=== PATIENT | female | born 1980 | race Caucasian/White ===

== ENCOUNTER → 2020-09-25 12:21 | Outpatient (CLI) | payer OTHER, SELFPAY | PROVIDERS: PCP Family Medicine; Referring Provider Family Medicine; Visit Provider Family Medicine | DX: G47.10 Hypersomnia, unspecified (principal); R53.83 Other fatigue; R06.83 Snoring | CPT/HCPCS: 95806 ==

== ENCOUNTER → 2020-10-13 06:30 | Outpatient (CLI) | payer OTHER, SELFPAY | PROVIDERS: PCP Family Medicine; Visit Provider Family Medicine | DX: Z46.89 Encounter for fitting and adjustment of other specified devices (principal) ==

== ENCOUNTER → 2024-06-11 | Outpatient (CLI) | payer OTHER, SELFPAY ==
--- NOTE | 2024-06-11 15:33 | BI_ITS ---
MAMMOGRAPHY - BILATERAL SCREENING REASON FOR EXAM: Female, 43 years old. Routine annual screening examination. PERTINENT HISTORY: Non-contributory. TECHNIQUE: Digital bilateral breast jessica (3D mammographic acquisition) in the CC and MLO projections. 2-D mediolateral oblique (MLO) and craniocaudad (CC) views of both breasts were obtained. CAD: Full Field Digital Mammography with Computer Added Detection was performed. COMPARISON: None. Baseline examination. FINDINGS: Breast Composition: There are scattered areas of fibroglandular density. There are no dominant masses or suspicious calcifications. No other significant abnormalities are identified. There has been no significant change since the prior study. BI/SCRN MAMM (CAD)W/JESSICA BILAT IMPRESSION: Stable bilateral screening mammogram. Yearly follow-up mammogram recommended. (A) ASSESSMENT CATEGORY: BIRADS Category 1: Negative. A letter regarding these results will be sent to the patient by the facility within 30 days. Approximately 10% of breast cancers are not detected by mammography. A normal mammogram should not delay biopsy of a clinically suspicious abnormality. [id number] Electronically Signed: Thomas Melo MD at 8:24 EST ,
== END | disposition home or self-care (01) ==
PROVIDERS: PCP Family Medicine; Referring Provider Family Medicine; Visit Provider Family Medicine
DX: Z12.31 Encounter for screening mammogram for malignant neoplasm of breast (principal)
CPT/HCPCS: 77063; 77067

== ENCOUNTER → 2024-06-12 | Outpatient (CLI) | payer OTHER, SELFPAY ==
[2024-06-12 07:42] LABS: Absolute Lymphocyte Count 2.26 X10^3/uL (0.83-4.51); Absolute Neutrophil Count 3.3 X10^3/uL (2.0-7.7); Basophil# 0.06 X10^3/uL; Eosinophil# 0.12 X10^3/uL; Hematocrit 42.8 % (37-47); Hemoglobin 14.2 g/dL (12.0-15.0); Lymphocyte # 2.26 X10^3/ul (0.83-4.51); Lymphocyte % 37.4 % (19-41); Mean Corp Hgb Conc 33.2 g/dL (32-36); Mean Corpuscular Hgb 30.6 pg (27.0-32.0); Mean Corpuscular Volume 92.2 fL (81-99); Mean Platelet Vol. 9.4 fl (6.2-12.0); Monocyte# 0.33 X10^3/uL; Monocyte% 5.5 % (0-10); NRBC Flagged by Analyzer 0 % (0-5); Neutrophil # 3.27 X10^3/uL (2.7-7.7); Neutrophil % 53.9 % (47-70); Platelet Count 344 K/mm3 (150-450); RBC Distribution Width CV 12.8 % (11.6-14.6); RBC Distribution Width SD 43.8 fl (35.1-43.9); Red Blood Count 4.64 M/mm3 (4.2-5.4); White Blood Count 6.1 K/mm3 (4.4-11.0)
[2024-06-12 08:00] LABS: ALB/GLOB Ratio 1.2 RATIO (0.9-2.4); AST(SGOT) 20 U/L (15-37); Alanine Aminotransfer ALT/SGPT 31 U/L (13-56); Albumin, Serum 3.8 g/dL (3.2-5.0); Alkaline Phosphatase 49 U/L (45-117); Anion Gap 5 (5-15); BUN 14 mg/dL (7-18); BUN/Creat Ratio 20.2 RATIO (10-20); Chloride 106 mmol/L (98-107); Cholesterol 253 mg/dL (200); Creatinine, Serum 0.69 mg/dL (0.55-1.02); EST Glomerular Filtration Rate 98 mL/min (>60); Est Glom Filt Rate - Afr Amer 118 mL/min (>60); Globulin 3.3 g/dL (2.2-4.2); Glucose 109 mg/dL (74-106); High Density Lipoprotein 64 mg/dL; Potassium 4.2 mmol/L (3.5-5.1); Protein, Total 7.1 g/dL (6.4-8.2); Sodium Level 138 mmol/L (136-145); Triglycerides 70 mg/dL; Very Low Density Lipoprotein 14 mg/dL (5-40)
== END | disposition home or self-care (01) ==
LOC: LAB 06:05
PROVIDERS: PCP Family Medicine; Referring Provider Family Medicine; Visit Provider Family Medicine
DX: Z00.00 Encounter for general adult medical examination without abnormal findings (principal)
CPT/HCPCS: 36415; 80053; 80061; 84443; 85025

== ENCOUNTER 2024-10-14 06:21 | Day surgery (SDC) | payer OTHER, SELFPAY ==
[2024-10-14] VITALS (8 sets, daily range): BP systolic 104–135; BP diastolic 65–75; PULSE 16–64; RESP 14–16; TEMP 36.1–36.6; O2SAT 95–99; BMI 39.9
[2024-10-14 07:06] LABS: Internal QC Validated? YES +Cl - CLEAR BKGD; Pregnancy, Urine Negative Negative
[2024-10-14] MEDS: Lactated Ringers 1,000 ML 15 ML IV (07:07)
--- NOTE | 2024-10-14 07:34 | PCM.PRE.AN2 ---
ASA Classification* ASA Classification ASA Classification: 2 Assessment & Plan Anesthesia* Anesthesia Assessment Anesthesia Assessment: Discussed sedation and/or anesthesia options, risks, benefits, and alternatives with patient/parents/legal guardian/POA. Questions invited. The patient/parents/legal guardian/POA seems to understand and agrees to proceed with anesthesia plan. Reviewed the physical assessment, medical history, allergy history and patient home medications list prior to surgery/procedure/anesthetic and documented any changes. Performed airway and anesthesia risk assessments. Anesthesia Type Anesthesia Type: MAC History Source History Obtained from:: Patient and Chart Anesthesia Focused Assessment* Temperature: 97.8 F Pulse Rate: 62 Blood Pressure: 135/75 Respiratory Rate: 14 Pulse Ox: 99 Oxygen Delivery Method: Room Air Airway Assessment Mouth opens: >3 cm Mallampati Score: III Teeth Condition: Caps/Crowns (Patient has several crowns. They are all tight.) and Chipped/Broken (Patient has chipped tooth #11.) Neck Range of motion (ROM): Full ROM Focused Labs Anesthesia Preop lab: CBC WBC 6.1 K/mm3 (4.4-11.0) 06/12/24 06:10 06/12/24 RBC 4.64 M/mm3 (4.2-5.4) 06/12/24 06:10 06/12/24 Hgb 14.2 g/dL (12.0-15.0) 06/12/24 06:10 06/12/24 Hct 42.8 % (37-47) 06/12/24 06:10 06/12/24 Plt Count 344 K/mm3 (150-450) 06/12/24 06:10 06/12/24 CHEMISTRY Potassium 4.2 mmol/L (3.5-5.1) 06/12/24 06:10 06/12/24 Sodium 138 mmol/L (136-145) 06/12/24 06:10 06/12/24 BUN 14 mg/dL (7-18) 06/12/24 06:10 06/12/24 Creatinine 0.69 mg/dL (0.55-1.02) 06/12/24 06:10 06/12/24 Glucose 109 mg/dL (74-106) H 06/12/24 06:10 06/12/24 TSH 3.510 uIU/mL (0.358-3.740) 06/12/24 06:10 06/12/24 COAG Urine Test Negative Negative 10/14/24 06:54 10/14/24 Pre-Assessment Diagnosis/Proposed Procedure Planned Operative Procedure(s): EGD, COLONOSCOPY Anesthesia History Anesthesia History - materials recycler: Anesthesia History - materials recycler Hx Hospitalization No 10/10/24 11:00 Any Problems With Anesthesia No 10/10/24 11:00 Cholinesterase deficiency No 10/10/24 11:00 You/Your Family Experience No 10/10/24 11:00 fever (hyperthermia) with Relationship Recent Exposure to Contagious No 10/14/24 06:59 Disease Does patient have nerve No 10/10/24 11:00 stimulator Patient instructed to have device shut off --Does patient have Pacemaker No 10/14/24 06:59 or ICD? When Was Last Pacemaker Check QUESTION #4 FULL TEXT: You/Your Family Experience fever (hyperthermia) with Anesthesia Last Oral Intake Last Oral intake: Last Oral Intake NPO since 02:00 10/14/24 06:59 Meds taken in AM with sips of Yes 10/14/24 06:59 water? Meds patient instructed to take am of surgery Any additional information?: Yes NPO since: 05:30 (Patient had water at 5:30 AM.) Meds taken in AM with sips of water?: Yes PONV PONV - materials recycler: PONV - materials recycler Female Yes 10/10/24 11:00 HX of Motion Sickness No 10/10/24 11:00 HX of N/V After Surgery No 10/10/24 11:00 Non-Smoker Yes 10/10/24 11:00 Duration of Surgery greater No 10/10/24 11:00 than 60 minutes Number of Risk Factors 2 10/10/24 11:00 PONV Score Moderate Risk 10/10/24 11:00 Height & Weight Height & Weight: Anesthesia: Height & Weight Height 5 ft 5 in 10/14/24 06:59 Weight: 109 kg 10/14/24 06:59 Body Mass Index (BMI) 39.9 10/14/24 06:59 Respiratory Assessment Respiratory Assessment - materials recycler: Respiratory Tract Infection Hx - materials recycler Hx Respiratory Tract Infection No 10/10/24 11:00 STOP Sleep Apnea STOP Sleep Apnea - materials recycler: STOP Sleep Apnea - materials recycler Hx Hypertension Yes: BORDERLINE 10/10/24 11:00 Hx Sleep Apnea Yes: COULDNT AFFORD CPAP 10/10/24 11:00 CPAP Yes: DOESNT WEAR 10/10/24 11:00 BIPAP No 10/10/24 11:00 Do you snore loudly (louder than talking or can be heard Do you often feel tired/ fatigued/ sleepy during daytime? Has anyone observed you stop breathing during sleep? STOP Results Positive 10/10/24 11:00 QUESTION #5 FULL TEXT : Do you snore loudly (louder than talking or can be heard through closed doors)? 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 Specify any problems Hx of Preganancy in last 3 No 10/10/24 11:00 Months Nurse Filling Out Transfusion [facility] 10/10/24 11:00 & Questions: Date: 10/10/24 10/10/24 11:00 Time: 11:09 10/10/24 11:00 Patient unable to answer at this time (ie. confused, unrespo /Reproduction History /Reproductive History - materials recycler: /Reproductive Hx- materials recycler Hx Now No 10/10/24 11:00 Gestational Age (in weeks): EDC: Hx Hx Para Hx Section SAB No 10/10/24 11:00 Active Medications Active Medications: Current Medications Generic Name Dose Route Start Last Admin Trade Name Freq PRN Reason Stop Dose Admin Lactated Ringer's 1,000 mls @ 15 mls/hr 10/14/24 06:45 10/14/24 07:07 IV 15 mls/hr .Q48H RUTH Administration PFSH Medical History Wears glasses Depression Anxiety Restless legs Dietary restriction Heartburn Gastric reflux CPAP (continuous positive airway pressure) dependence Sleep apnea Former smoker History of stress test Hypertension Rectal bleeding Rectal pain Kidney stones Back problem Gingival disease Home Medications ?Medication ?Instructions ?Recorded ?Last Taken ?Type fexofenadine 180 mg tablet 180 mg PO QDAY 07/12/24 Unknown History (Tamar Allergy) omeprazole 10 mg capsule,delayed 40 mg PO DAILY 07/24/24 10/14/24 02:00 History release ondansetron HCl 4 mg tablet 8 mg (2 x 4 mg) PO .COMPLEX #5 tabs 07/24/24 Unknown Rx mometasone 50 mcg/actuation nasal 2 spray intranasal DAILY 10/10/24 Unknown History spray Allergy/AdvReac Type Severity Reaction Status Date / Time amoxicillin Allergy Mild Other Verified 10/14/24 06:59 adhesive tape AdvReac Mild Itching Verified 10/14/24 06:59 Family History Father Alcohol abuse Heart disease Myocardial infarction, Onset Age: 20 Sister Alcohol abuse Deep vein thrombosis CVA (cerebral vascular accident) Grandmother Diabetes Surgical History No pertinent past surgical history Social History Smoking Status: Former smoker alcohol intake: never substance use type: does not use what type of physical activity do you participate in: none Review of Systems (Anesthesia) ROS Narrative System reviewed and no additional complaints, except as documented.
--- NOTE | 2024-10-14 07:42 | HP.PCM_ITS ---
HPI - General General Date of Admission: 10/14/24 Date of Service: 10/14/24 Chief Complaint: GERD and rectal bleeding HPI Narrative LISBETH MITCHELL, is a 44 F who presents with a chief Complaints : bleeding and GERD - waking in middle of night with rectal pain - feels like she needs to have a BM - sits on heating pad for relief of pain - rectal bleeding, BRBPR with BM - rectal pain episodes are more frequent than bleeding, 1-3 episodes a month - stools vary in consistency - can strain with BM - reports she has a BM after almost every meal - urgent - denies pain with a BM - with bleeding episodes - her last episode was 4 days ago and states she had 2 episodes this day - on TP and in H20 - most blood she has ever seen ---- CBC was unremarkable 06/12/2024 - reports mild LLQ pain with most recent episode of bleeding, this was self limited - denies any family h/o colon CA - HB - Omeprazole 40mg QD - cannot miss a dose - has been on PPI for a long time - denies any dysphagia [facility] Medical History Wears glasses Depression Anxiety Restless legs Dietary restriction Heartburn Gastric reflux CPAP (continuous positive airway pressure) dependence Sleep apnea Former smoker History of stress test Hypertension Rectal bleeding Rectal pain Kidney stones Back problem Gingival disease Home Medications ?Medication ?Instructions ?Recorded ?Last Taken ?Type fexofenadine 180 mg tablet 180 mg PO QDAY 07/12/24 Unk nown History (Tamar Allergy) omeprazole 10 mg capsule,delayed 40 mg PO DAILY 10/14/24 02:00 History release ondansetron HCl 4 mg tablet 8 mg (2 x 4 mg) PO .COMPLE X #5 tabs 07/24/24 Unknown Rx mometasone 50 mcg/actuation nasal 2 spray intranasal D AILY 10/10/24 Unknown History spray Allergy/AdvReac Type Severity Reaction Status Date / Time amoxicillin Allergy Mild Other Verified 10/14/24 06:59 adhesive tape AdvReac Mild Itching Verified 10/14/24 06:59 Family History Father Alcohol abuse Heart disease Myocardial infarction, Onset Age: 20 Sister Alcohol abuse Deep vein thrombosis CVA (cerebral vascular accident) Grandmother Diabetes Surgical History No pertinent past surgical history Social History Smoking Status: Former smoker alcohol intake: never substance use type: does not use what type of physical activity do you participate in: none ROS Constitutional Constitutional: Denies fatigue, fever(s), poor appetite, weight gain or weight loss Gastrointestinal Gastrointestinal: Denies belching, bloating, change in bowel habits, change in stool character, chewing difficulty, coffee ground emesis, constipation, cr amping, diarrhea, dyspepsia, dysphagia, early satiety, excessive flatus, fecal incontinence, heartburn, hematemesis, hematochezia, hemorrhoids, loose stools, melena, nausea, odynophagia, rectal bleeding, tenesmus, vomiting or weight changes Vital Signs Vital Signs Vital Signs: 10/14/24 06:59 10/14/24 06:59 10/14/24 07:41 Temperature 97.8 F 97.8 F Temperature Source Temporal Pulse Rate 62 62 Respiratory Rate 14 14 Respiratory Pattern Normal Blood Pressure 135/75 H 135/75 H Blood Pressure Mean 95 Blood Pressure Source Monitor Blood Pressure Position Semi-Fowlers Blood Pressure Location Right Arm Pulse Ox 99 99 Oxygen Delivery Method Room Air Room Air Weight Weight: 240 lb 4.862 oz Body Mass Index (BMI) 39.9 Physical Exam Const alert, oriented x3, no apparent distress and healthy appearing General Appearance: cooperative GI normal to inspection, nondistended, normoactive bowel sounds, soft to palpation, non-tender and non-distended Percussion: normal to percussion Rectal Exam: deferred Results Lab / Micro Data Labs: Laboratory Results - last 24 hr 10/14/24 06:54: Urine Test Negative Assessment & Plan Assessment/Plan (1) GERD (gastroesophageal reflux disease): (2) Rectal bleeding: (3) Rectal pain: PLAN: Assessment and Plan Assessment and Plan (1) Rectal bleeding: Status: Acute (2) Rectal pain: Status: Acute (3) GERD (gastroesophageal reflux disease): Status: Acute Medications: New ondansetron HCl (2 x 4 mg) take two tablets PO two hours prior to start of bowel prep and one every 4 hours as needed for N/V 5 tabs 0RF Plan 43y/o female presents for initial consultation with complaints of blood in stool. CBC was unremarkable 06/12/2024. She reports intermittent episodes of BRBPR with BM and rectal pain that wakes her at HS. She experiences urgent stools after meals. She denies any weight loss or family history of colon cancer. I have scheduled her for a colonoscopy. She reports a long history of GERD managed with daily PPI. She reports exacerbation of symptoms with one missed dose. She will also schedule EGD and follow-up in the office post procedures. Patient Instructions: EGD and Colonoscopy - Sutab bowel prep (ADH instructions provided) Sutab sample provided Ondansetron RX provided for bowel prep: take two tablets PO two hours prior to start of bowel prep and one every 4 hours as needed for N/V (Quantity 5 with 0 refills) Follow-up in office post procedure
--- NOTE | 2024-10-14 07:45 | EGD_PTH ---
PATIENT: LISBETH MITCHELL LOC: EN U#:[id number] AGE/SX: 44/F ROOM: RE10/14/[address]: Dr. Devan Mar DO : 1980 BED: DIS: 10/14/2024 SPEC #: [id number] RECD: 10/14/24 09:23 STATUS: ZOHREH VIKI #: [id number] ECTOR: 10/14/24 07:[address]: Devan Mar DEPT: SURGICAL PATHOLOGY RECD BY: Kahlil Gaitan ENTERED: 10/14/24 09:47 SP TYPE: EGD BIOPSY OT DR: Dr. Nino Balderas DO Tissues: A - Esophagus, NOS B - Gastric mucous membrane C - Transverse colon D - Sigmoid colon biopsy Procedures: Immunohistochemical Stains Surgery Specimen Level IV HEADER OPERATION: Colonoscopy with biopsy, EGD with biopsy PRE-OP DIAGNOSIS: Rectal bleeding, rectal pain, GERD TISSUE SUBMITTED: A- Distal esophagus biopsy, B- Gastric antrum biopsy, C- Transverse colon polyp, D- Sigmoid polyp MICROSCOPIC DIAGNOSIS A. Esophagus, distal, biopsy: * Oxyntocardiac type mucosa with mild chronic inflammation, negative for goblet cells * Squamous epithelium is not identified B. Stomach, gastric antrum, biopsy: Antral and oxyntic mucosa with mild chronic inflammation No morphologic evidence of Helicobacter pylori organisms identified on H&E or immunostain sections C. Transverse colon, polyp, biopsy: * Serrated polyp with focal features suggestive of sessile serrated adenoma D. Sigmoid colon, polyp, biopsy: * Hyperplastic polyp MICROSCOPIC DESCRIPTION Slides are reviewed. GROSS DESCRIPTION A. Received in formalin in a container labeled with the patient's name, date of , and distal esophagus biopsy is a 0.8 x 0.2 x 0.2 cm strip of hines-pink mucosal tissue. Submitted in toto in A1. B. Received in formalin in a container labeled with the patient's name, date of , and gastric antrum biopsy are multiple hines-pink fragments of mucosal tissue measuring 0.8 x 0.5 x 0.2 cm in aggregate. Submitted in toto in B1. C. Received in formalin in a container labeled with the patient's name, date of , and transverse colon polyp are multiple hines-pink fragments of mucosal tissue measuring 0.8 x 0.6 x 0.2 cm in aggregate. Submitted in toto in C1. D. Received in formalin in a container labeled with the patient's name, date of , and sigmoid polyp is a 0.7 x 0.3 x 0.2 cm strip of hines-pink mucosal tissue. Submitted in toto in D1. B 10-14-2024 CPT:42865e7,73025
--- NOTE | 2024-10-14 08:27 | PCM.POST.ANE ---
Anesthesia: Postop Eval I Current Vital Signs Temperature: 97 F Pulse Rate: 16 Blood Pressure: 104/71 Respiratory Rate: 16 Pulse Ox: 97 Oxygen Delivery Method: Room Air Assessment Airway patent: Yes Spontaneous unlabored respirations: Yes Mental status: Awake and Calm nausea: No Vomiting: No Anesthesia Complication: No Fluid Hydration Crystalloid volume administer (ml): 500 Total IV fluid infused: 500 Progress Note Anesthesia document: Postop Eval 1 completed: Yes
--- NOTE | 2024-10-14 08:28 | OP.EGD_ITS ---
Patient Name: Tejal Weldon Procedure Date: 10/14/2024 7:47 AM Date of : 1980 Age: 44 Procedure: Upper GI endoscopy Indications: Heartburn, Suspected esophageal reflux Providers: Devan Mar DO Referring MD: Nino Balderas Medicines: Monitored Anesthesia Care Patient Profile: This is a 44 year old female. Refer to note in patient chart for documentation of history and physical. Patient has symptoms of chronic heartburn. Complications: No immediate complications. Procedure: Pre-Anesthesia Assessment: - Prior to the procedure, a History and Physical was performed, and patient medications and allergies were reviewed. The patient is competent. The risks and benefits of the procedure and the sedation options and risks were discussed with the patient. All questions were answered and informed consent was obtained. Patient identification and proposed procedure were verified by the physician in the pre-procedure area. Mental Status Examination: alert and oriented. Airway Examination: normal oropharyngeal airway and neck mobility. Respiratory Examination: clear to auscultation. CV Examination: normal. Prophylactic Antibiotics: The patient does not require prophylactic antibiotics. Prior Anticoagulants: The patient has taken no anticoagulant or antiplatelet agents. ASA Grade Assessment: II - A patient with mild systemic disease. After reviewing the risks and benefits, the patient was deemed in satisfactory condition to undergo the procedure. The anesthesia plan was to use monitored anesthesia care (MAC). Immediately prior to administration of medications, the patient was re-assessed for adequacy to receive sedatives. The heart rate, respiratory rate, oxygen saturations, blood pressure, adequacy of pulmonary ventilation, and response to care were monitored throughout the procedure. The physical status of the patient was re-assessed after the procedure. After obtaining informed consent, the endoscope was passed under direct vision. Throughout the procedure, the patient's blood pressure, pulse, and oxygen saturations were monitored continuously. The pediatric colonoscope was introduced through the mouth, and advanced to the second part of duodenum. The upper GI endoscopy was accomplished without difficulty. The patient tolerated the procedure well. Scope In: 7:56:18 AM Scope Out: 7:59:55 AM Total Procedure Duration Time 0 hours 3 minutes 37 seconds Findings: LA Grade A (one or more mucosal breaks less than 5 mm, not extending between tops of 2 mucosal folds) esophagitis with no bleeding was found 38 to 40 cm from the incisors. Biopsies were taken with a cold forceps for histology. Verification of patient identification for the specimen was done. Biopsies were taken with a cold forceps for histology. Verification of patient identification for the specimen was done. Estimated blood loss was minimal. Few non-bleeding linear gastric ulcers with no stigmata of bleeding were found in the gastric body. The largest lesion was 5 mm in largest dimension. Biopsies were taken with a cold forceps for histology. Verification of patient identification for the specimen was done. Estimated blood loss was minimal. Biopsies were taken with a cold forceps for Helicobacter pylori testing. Verification of patient identification for the specimen was done. Estimated blood loss was minimal. A benign-appearing, intrinsic moderate stenosis was found at the pylorus. This was non-traversed. No gross lesions were noted in the duodenal bulb. Impression: - LA Grade A reflux esophagitis with no bleeding. Biopsied. - Non-bleeding gastric ulcers with no stigmata of bleeding. Biopsied. - Gastric stenosis was found at the pylorus. - No gross lesions in the duodenal bulb. Recommendation: - Discharge patient to home. - Resume previous diet. - Continue present medications. - Await pathology results. Procedure Code(s): --- Professional --- 14753, Esophagogastroduodenoscopy, flexible, transoral; with biopsy, single or multiple CPT copyright 2021 [employer]. All rights reserved. The codes documented in this report are preliminary and upon schedule checker review may be revised to meet current compliance requirements. Devan Mar DO 10/14/2024 8:27:34 AM This report has been signed electronically. Number of Addenda: 0 Note Initiated On: 10/14/2024 7:47 AM
--- NOTE | 2024-10-14 08:28 | OP.CCLET_ITS ---
10/14/2024 Nino Balderas [address] [facility] [place] [address] Re : Upper GI endoscopy procedure for Tejal Weldon Dear Dr. Balderas This procedure was performed on Monday, October 14, 2024. My impressions and recommendations are as follows: Impressions : - LA Grade A reflux esophagitis with no bleeding. Biopsied. - Non-bleeding gastric ulcers with no stigmata of bleeding. Biopsied. - Gastric stenosis was found at the pylorus. - No gross lesions in the duodenal bulb. Recommendations : - Discharge patient to home. - Resume previous diet. - Continue present medications. - Await pathology results. My findings are described in the full procedure note, which is enclosed. If I can be of further assistance, please feel free to contact me at . Sincerely, Devan Mar, 10/14/2024 8:27:34 AM This report has been signed electronically.
--- NOTE | 2024-10-14 08:31 | OP.CCLET_ITS ---
10/14/2024 Nino Balderas [address] [place] [address] Re : Colonoscopy procedure for Tejal Weldon Dear Dr. Balderas This procedure was performed on Monday, October 14, 2024. My impressions and recommendations are as follows: Impressions : - Non-bleeding internal hemorrhoids. - Diverticulosis in the recto-sigmoid colon and in the sigmoid colon. - One 9 mm polyp in the sigmoid colon, removed with a hot snare. Resected and retrieved. - One 5 mm polyp in the transverse colon, removed with a jumbo cold forceps. Resected and retrieved. - The examination was otherwise normal on direct and retroflexion views. Recommendations : - Discharge patient to home. - Resume previous diet. - Continue present medications. - Await pathology results. - Repeat colonoscopy in 5 years for surveillance. My findings are described in the full procedure note, which is enclosed. If I can be of further assistance, please feel free to contact me at . Sincerely, Devan Mar, 10/14/2024 8:30:54 AM This report has been signed electronically.
--- NOTE | 2024-10-14 08:31 | OP.COLON_ITS ---
Patient Name: Tejal Weldon Procedure Date: 10/14/2024 8:00 AM Date of : 1980 Age: 44 Procedure: Colonoscopy Indications: Screening for colorectal malignant neoplasm Providers: Devan Mar DO Referring MD: Nino Balderas Medicines: Monitored Anesthesia Care Patient Profile: This is a 44 year old female. Refer to note in patient chart for documentation of history and physical. Patient has symptoms of chronic heartburn. Last Colonoscopy: none. The patient's first colonoscopy is today. Complications: No immediate complications. Procedure: Pre-Anesthesia Assessment: - Prior to the procedure, a History and Physical was performed, and patient medications and allergies were reviewed. The patient is competent. The risks and benefits of the procedure and the sedation options and risks were discussed with the patient. All questions were answered and informed consent was obtained. Patient identification and proposed procedure were verified by the physician in the pre-procedure area. Mental Status Examination: alert and oriented. Airway Examination: normal oropharyngeal airway and neck mobility. Respiratory Examination: clear to auscultation. CV Examination: normal. Prophylactic Antibiotics: The patient does not require prophylactic antibiotics. Prior Anticoagulants: The patient has taken no anticoagulant or antiplatelet agents. ASA Grade Assessment: II - A patient with mild systemic disease. After reviewing the risks and benefits, the patient was deemed in satisfactory condition to undergo the procedure. The anesthesia plan was to use monitored anesthesia care (MAC). Immediately prior to administration of medications, the patient was re-assessed for adequacy to receive sedatives. The heart rate, respiratory rate, oxygen saturations, blood pressure, adequacy of pulmonary ventilation, and response to care were monitored throughout the procedure. The physical status of the patient was re-assessed after the procedure. After I obtained informed consent, the scope was passed under direct vision. Throughout the procedure, the patient's blood pressure, pulse, and oxygen saturations were monitored continuously. The pediatric colonoscope was introduced through the anus and advanced to the terminal ileum. The colonoscopy was performed without difficulty. The patient tolerated the procedure well. The quality of the bowel preparation was adequate. The terminal ileum, ileocecal valve, appendiceal orifice, and rectum were photographed. Scope In: 8:01:33 AM Scope Withdrawal Time 0 hours 11 minutes 4 seconds Scope Out: 8:17:37 AM Total Procedure Duration Time 0 hours 16 minutes 4 seconds Findings: The perianal and digital rectal examinations were normal. Non-bleeding internal hemorrhoids were found during retroflexion. The hemorrhoids were Grade II (internal hemorrhoids that prolapse but reduce spontaneously). A few small-mouthed diverticula were found in the recto-sigmoid colon and sigmoid colon. A 9 mm polyp was found in the sigmoid colon. The polyp was sessile. The polyp was removed with a hot snare. Resection and retrieval were complete. Verification of patient identification for the specimen was done. Estimated blood loss was minimal. A 5 mm polyp was found in the transverse colon. The polyp was sessile. The polyp was removed with a jumbo cold forceps. Resection and retrieval were complete. Verification of patient identification for the specimen was done. Estimated blood loss was minimal. The exam was otherwise without abnormality on direct and retroflexion views. Impression: - Non-bleeding internal hemorrhoids. - Diverticulosis in the recto-sigmoid colon and in the sigmoid colon. - One 9 mm polyp in the sigmoid colon, removed with a hot snare. Resected and retrieved. - One 5 mm polyp in the transverse colon, removed with a jumbo cold forceps. Resected and retrieved. - The examination was otherwise normal on direct and retroflexion views. Recommendation: - Discharge patient to home. - Resume previous diet. - Continue present medications. - Await pathology results. - Repeat colonoscopy in 5 years for surveillance. Procedure Code(s): --- Professional --- 40917, Colonoscopy, flexible; with removal of tumor(s), polyp(s), or other lesion(s) by snare technique 03262, 59, Colonoscopy, flexible; with biopsy, single or multiple CPT copyright 2021 [employer]. All rights reserved. The codes documented in this report are preliminary and upon sisal operator review may be revised to meet current compliance requirements. Devan Mar DO 10/14/2024 8:30:54 AM This report has been signed electronically. Number of Addenda: 0 Note Initiated On: 10/14/2024 8:00 AM
--- NOTE | 2024-10-14 17:58 | PCM.POSTANE2 ---
Anesthesia Postop Eval I Sum Postop Eval Completion status Anesthesia document: Postop Eval 1 completed: Yes Anesthesia Postop Eval I Summary Anesthesia Postop Eval I Summary: Anesthesia Postop Eval I: Assessment Summary Airway patent Yes 10/14/24 08:29 [email or web address] Spontaneous unlabored Yes 10/14/24 08:29 [email or web address] respirations Mental status Awake,Calm 10/14/24 08:29 [email or web address] nausea No 10/14/24 08:29 [email or web address] Vomiting No 10/14/24 08:29 [email or web address] Anesthesia Postop Eval I: Fluid Summary Crystalloid volume administer 500 10/14/24 08:29 [email or web address] (ml) Colloids volume administered ( ml) Blood Product volume administered (ml) Total IV fluid infused 500 10/14/24 08:29 [email or web address] Anesthesia Postop Eval I: Summary Notes Anesthesia Complication No 10/14/24 08:29 [email or web address] Anesthesia Complication Comment: Post-operative progress note Anesthesia: Postop Eval II Evaluation Mental status: Awake and Calm Pain Level: 0 nausea: No Vomiting: No Complications Anesthesia Complication: No
== END 2024-10-14 09:09 | disposition home or self-care (01) ==
LOC: EN 06:22 → AC 06:23
PROVIDERS: Anesthesiology; PCP Family Medicine; Referring Provider Family Medicine; Visit Provider Internal Medicine Gastroenterology
PROC: 0DJD8ZZ Inspection of Lower Intestinal Tract, Via Natural or Artificial Opening Endoscopic (ICD-10-PCS; CPT 45378; principal; 2024-10-14 07:40)
DX: Z12.11 Encounter for screening for malignant neoplasm of colon (principal); K64.1 Second degree hemorrhoids; Z79.899 Other long term (current) drug therapy; K25.9 Gastric ulcer, unspecified as acute or chronic, without hemorrhage or perforation; K21.00 Gastro-esophageal reflux disease with esophagitis, without bleeding; K57.30 Diverticulosis of large intestine without perforation or abscess without bleeding; I10 Essential (primary) hypertension; Z87.891 Personal history of nicotine dependence; K31.1 Adult hypertrophic pyloric stenosis; D12.3 Benign neoplasm of transverse colon; K29.50 Unspecified chronic gastritis without bleeding
CPT/HCPCS: 45385; 45380; 43239; 81025; 88305; 88342; J2405

== ENCOUNTER → 2025-03-10 | Outpatient (CLI) | payer OTHER, SELFPAY | END | disposition home or self-care (01) | LOC: PSN 07:44 | PROVIDERS: PCP Family Medicine; Referring Provider Family Medicine; Visit Provider Family Medicine | DX: R05.9 Cough, unspecified (principal) | CPT/HCPCS: 94060; 94726; 94729 ==

== ENCOUNTER → 2025-04-22 | Outpatient (CLI) | payer OTHER, SELFPAY ==
--- NOTE | 2025-04-22 17:15 | RAD_ITS ---
PROCEDURE: CHEST PA AND LATERAL 04/22/2025 REASON FOR EXAM: COUGH TECHNIQUE: Procedure Code: RADCXR Modality: DX Procedure: CHEST PA AND LATERAL FINDINGS: No focal consolidation. No pleural effusion or pneumothorax. Cardiac silhouette is within normal limits. No acute fractures. RAD/Chest PA and Lateral IMPRESSION: No focal consolidations. Reading Location: [id number]
== END | disposition home or self-care (01) ==
LOC: RAD.FUTURE 17:04 → RAD 17:05
PROVIDERS: PCP Family Medicine; Referring Provider Family Medicine; Visit Provider Family Medicine
DX: R05.9 Cough, unspecified (principal)
CPT/HCPCS: 71046